=== PATIENT | female | born 1945 | race Caucasian/White ===

== ENCOUNTER 2021-08-31 13:16 | Outpatient (CLI) | payer OTHER | END 2021-08-31 13:17 | disposition critical access hospital (66) | LOC: EMS 13:16 | DX: M25.551 Pain in right hip (principal); W03.XXXA Other fall on same level due to collision with another person, initial encounter; Y93.K1 Activity, walking an animal; Y92.414 Local residential or business street as the place of occurrence of the external cause | CPT/HCPCS: A0425; A0427 ==

== ENCOUNTER 2021-08-31 13:33 | Inpatient (IN) | payer MEDICARE, OTHER ==
[2021-08-31] MEDS ORDERED: ONDANSETRON 4 MG/2 ML VIAL IVP STA (13:54)
--- NOTE | 2021-08-31 14:25 | ED Physician Documentation ---
History of Present Illness - Stated complaint Stated Complaint: GLF/HIP PX - Chief complaint Chief Complaint: Trauma Ext - History obtained from History obtained from: Patient - History of Present Illness Timing: Today Pain level max: 7 Pain level now: 6 - Additonal information Additional information: Patient is a 75-year-old female who presents to the emergency department after a ground-level fall, landing on the right hip. Worse with movement, better with rest. Given fentanyl by EMS. No head, neck, back pain. Denies any other injuries. 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 : None HEENT: None Psych: Anxiety Musculoskeletal: None Derm: None - Past Surgical History Past Surgical History: Yes General: Cholecystectomy Ortho: Knee replacement - Present Medications Home Medications: Ambulatory Orders Medication Instructions Recorded Confirmed Alprazolam [Xanax] 1 mg PO DAILY PRN 08/31/21 08/31/21 Ferrous Sulfate 220 mg PO DAILY 08/31/21 08/31/21 Montelukast [Singulair] 10 mg PO QPM 08/31/21 08/31/21 Naproxen 500 mg PO DAILY PRN 08/31/21 08/31/21 Omeprazole Magnesium 20 mg PO DAILY 08/31/21 08/31/21 - Allergies Allergies/Adverse Reactions: Allergies Allergy/AdvReac Type Severity Reaction Status Date / Time iodine Allergy Respiratory Verified 08/31/21 13:47 Penicillins Allergy Respiratory Verified 08/31/21 13:47 - Social History Does the pt smoke?: No Smoking Status: Never smoker Does the pt drink ETOH?: No Does the pt have substance abuse?: No - Immunizations Immunizations are current?: Yes PD ED PE NORMAL - Vitals Vital signs reviewed: Yes - General General: Alert and oriented X 3, No acute distress, Well developed/nourished - HEENT HEENT: PERRL, Moist mucous membranes - Neck Neck: Supple, no meningeal sign - Cardiac Cardiac: No murmur, Strong equal pulses - Respiratory Respiratory: No respiratory distress, Clear bilaterally - Abdomen Abdomen: Soft, Non tender, Non distended - Derm Derm: Warm and dry - Extremities Extremities: Other (Tender to palpation over the right hip. Very limited range of motion secondary to pain. The leg is held in slight flexion. Patient lying on her side. Neurovascular intact) - Neuro Neuro: Alert and oriented X 3 - Psych Psych: Normal mood, Normal affect Results - Vitals Vitals: Vital Signs - 24 hr 08/31/21 08/31/21 08/31/21 13:48 14:14 16:36 Temperature 36.3 C L 36.6 C Heart Rate 89 96 73 Respiratory 18 18 18 Rate Blood Pressure 140/68 H 116/91 H 127/67 O2 Saturation 98 98 99 Oxygen O2 Source Room air - EKG (time done) 1521 Rate: Rate (enter#) (72) Rhythm: NSR Cumming: Normal Intervals: Prolonged VA QRS: Normal Ischemia: Normal ST segments - Labs Labs: Laboratory Tests 08/31/21 08/31/21 08/31/21 14:36 14:36 15:35 WBC 6.5 RBC 4.29 Hgb 10.5 L Hct 33.4 L MCV 77.9 L MCH 24.5 L MCHC 31.4 L RDW 16.9 H Plt Count 347 MPV 9.9 Neut # (Auto) 4.3 Lymph # (Auto) 1.4 L Winkler # (Auto) 0.6 Eos # (Auto) 0.1 Baso # (Auto) 0.0 Absolute Nucleated RBC 0.00 Nucleated RBC % 0.0 Sodium 138 Potassium 3.5 Chloride 102 Carbon Dioxide 24 Anion Gap 12.0 BUN 14 Creatinine 0.5 Estimated GFR (MDRD) 121 Glucose 126 H Calcium 8.8 Total Bilirubin 0.7 AST 21 ALT 17 Alkaline Phosphatase 75 Total Protein 7.4 Albumin 4.1 Globulin 3.3 Albumin/Globulin Ratio 1.2 Nasal Adenovirus (PCR) NOT DETECTED Nasal B. parapertussis DNA (PCR) NOT DETECTED Nasal Coronavir 229E PCR NOT DETECTED Nasal Coronavir HKU1 PCR NOT DETECTED Nasal Coronavir NL63 PCR NOT DETECTED Nasal Coronavir OC43 PCR NOT DETECTED Nasal Enterovir/Rhinovir PCR NOT DETECTED Nasal Influenza B PCR NOT DETECTED Nasal Influenza A PCR NOT DETECTED Nasal Parainfluen 1 PCR NOT DETECTED Nasal Parainfluen 2 PCR NOT DETECTED Nasal Parainfluen 3 PCR NOT DETECTED Nasal Parainfluen 4 PCR NOT DETECTED Nasal RSV (PCR) NOT DETECTED Nasal B.pertussis DNA PCR NOT DETECTED Nasal C.pneumoniae (PCR) NOT DETECTED Jesus Human Metapneumo PCR NOT DETECTED Nasal M.pneumoniae (PCR) NOT DETECTED Nasal SARS-CoV-2 (PCR) NOT DETECTED - Rads (name of study) Right hip x-ray Radiology: Final report received, EMP read contemporaneously, See rad report (Femoral neck fracture) Chest x-ray Radiology: Final report received, EMP read contemporaneously, See rad report PD MEDICAL DECISION MAKING - ED course Complexity details: reviewed results, re-evaluated patient, considered differential, d/w patient, d/w family, d/w surgical consultant ED course: 75-year-old female with a right femoral neck fracture. Discussed the case with Dr. Banuelos, orthopedics who will take to the operating room. Pain well controlled. Discussed the case with Dr. Hannah, hospitalist who will come and do the preoperative evaluation. This document was made in part using voice recognition software. While efforts are made to proofread this document, sound alike and grammatical errors may occur. Departure - Departure Disposition: [facility] DC/Xfer Clinical Impression: Closed right hip fracture Qualifiers: Encounter type: initial encounter Qualified Code(s): S72.001A - Fracture of unspecified part of neck of right femur, initial encounter for closed fracture Condition: Stable Discharge Date/Time: 08/31/21 17:20
[2021-08-31] MEDS ORDERED: PROMETHAZINE INJ 25 MG in SODIUM CHLORIDE 0.9% 50 ML IV STA (14:39)
[2021-08-31 14:44] LABS: BASOPHILS % (AUTO) 0.6 %; EOSINOPHILS # (AUTO) 0.1 10^3/uL (0.0-0.7); EOSINOPHILS % (AUTO) 1.4 %; HCT - HEMATOCRIT 33.4 % (37.0-47.0); HGB - HEMOGLOBIN 10.5 g/dL (12.0-16.0); LYMPHOCYTES # (AUTO) 1.4 10^3/uL (1.5-3.5); MEAN CORPUSCULAR HEMOGLOBIN 24.5 pg (27.0-31.0); MEAN CORPUSCULAR HGB CONC 31.4 g/dL (32.0-36.0); MEAN CORPUSCULAR VOLUME 77.9 fL (81.0-99.0); MEAN PLATELET VOLUME 9.9 fL (7.9-10.8); MONOCYTES # (AUTO) 0.6 10^3/uL (0.0-1.0); MONOCYTES % (AUTO) 8.7 %; NEUTROPHILS # (AUTO) 4.3 10^3/uL (1.5-6.6); NEUTROPHILS % (AUTO) 66.8 %; PLT - PLATELET COUNT 347 10^3/uL (130-450); RED BLOOD COUNT 4.29 10^6/uL (4.20-5.40); RED CELL DISTRIBUTION WIDTH 16.9 % (12.0-15.0); WHITE BLOOD COUNT 6.5 x10^3/uL (4.8-10.8)
[2021-08-31 14:56] LABS: ALBUMIN 4.1 g/dL (3.2-5.5); ALBUMIN/GLOBULIN RATIO 1.2 (1.0-2.2); BILIRUBIN,TOTAL 0.7 mg/dL (0.2-1.0); CALCIUM 8.8 mg/dL (8.5-10.3); CREATININE 0.5 mg/dL (0.4-1.0); POTASSIUM 3.5 mmol/L (3.5-5.0); TOTAL PROTEIN 7.4 g/dL (6.7-8.2)
--- NOTE | 2021-08-31 15:11 | XRAY Report ---
PROCEDURE: Chest 1 View X-Ray INDICATIONS: pre-op TECHNIQUE: One view of the chest was acquired. COMPARISON: None. FINDINGS: Surgical changes and devices: None. Lungs and pleura: The patient was imaged in the left lateral decubitus position. Visualized portions of the right lung appear clear. Evaluation of the left lung is limited but grossly without focal air space disease. No definite pneumothorax or pleural effusion. Mediastinum: Mediastinal contours appear normal. Heart size is normal. Bones and chest wall: No suspicious bony lesions. Overlying soft tissues appear unremarkable. IMPRESSION: Limited evaluation of the chest given patient positioning. Within these limitations, no acute cardiop ulmonary abnormalities noted. Consider repeat imaging with dedicated upright PA and lateral views of the chest when patient is able. Reviewed by: Jamarcus Shah MD on 08/31/2021 3:10 PM PST Approved by: Jamarcus Shah MD on 08/31/2021 3:10 PM [facility] Station ID: [id number]
--- NOTE | 2021-08-31 15:14 | XRAY Report ---
PROCEDURE: Hip w/Pelvis 2-3V RT INDICATIONS: fall, hip pain TECHNIQUE: AP pelvis with lateral view(s) of the hip(s). COMPARISON: None. FINDINGS: Bones: Mildly limited evaluation given patient positioning within the left lateral decubitus position . Diffuse osteopenia. Degenerative changes of the bilateral hip joints. There is a mildly displaced s ubcapital right femoral neck fracture. Possible extension to the greater trochanter. Remainder the vi sualized osseous structures and pelvic ring appears grossly intact. No suspicious bony lesions. Soft tissues: The visualized bowel gas pattern is normal. No suspicious soft tissue calcifications. IMPRESSION: Mildly displaced, subcapital right femoral neck fracture with possible extension fractur e or into the greater trochanter. Reviewed by: Jamarcus Shah MD on 08/31/2021 3:13 PM PST Approved by: Jamarcus Shah MD on 08/31/2021 3:13 PM PST Station ID: [id number]
[2021-08-31] MEDS ORDERED: PROCHLORPERAZINE 10 MG/2 ML VIAL IVP PRN (16:17)
[2021-08-31] MEDS ORDERED: ONDANSETRON ODT 4 MG TABLET TL PRN (16:17)
[2021-08-31] MEDS ORDERED: MORPHINE 2 MG/ML CARPUJECT IVP PRN ×2 (16:17→16:42)
[2021-08-31 16:37] LABS: B. PARAPERTUSSIS- RESP PCR PAN NOT DETECTED; B. PERTUSSIS- RESP PCR PANEL NOT DETECTED; C. PNEUMONIAE- RESP PCR PANEL NOT DETECTED; CORONAVIRUS 229E-RESP PCR NOT DETECTED; CORONAVIRUS HKU1-RESP PCR NOT DETECTED; CORONAVIRUS NL63-RESP PCR NOT DETECTED; CORONAVIRUS OC43-RESP PCR NOT DETECTED; HUMAN METAPNEUMOVIRUS NOT DETECTED; INFLUENZA A- RESP PCR PANEL NOT DETECTED; INFLUENZA B - RESP PCR PANEL NOT DETECTED; M. PNEUMONIAE- RESP PCR PANEL NOT DETECTED; PARAINFLUENZA VIRUS 1 NOT DETECTED; PARAINFLUENZA VIRUS 2 NOT DETECTED; PARAINFLUENZA VIRUS 3 NOT DETECTED; PARAINFLUENZA VIRUS 4 NOT DETECTED; RHINOVIRUS/ENTEROVIRUS NOT DETECTED; RSV- RESP PCR PANEL NOT DETECTED; SARS-CoV-2 -RESP PCR PANEL NOT DETECTED
[2021-08-31] MEDS ORDERED: fentaNYL 100 MCG/2 ML VIAL IVP PRN (16:42)
[2021-08-31] MEDS ORDERED: METOCLOPRAMIDE 10 MG/2 ML VIAL IVP PRN (16:42)
[2021-08-31] MEDS ORDERED: HYDROmorphone 0.5 MG/0.5 ML SYRINGE IVP PRN (16:42)
[2021-08-31] MEDS ORDERED: ONDANSETRON 4 MG/2 ML VIAL IVP PRN (16:42)
[2021-08-31] MEDS ORDERED: NALOXONE 0.4 MG/ML VIAL IVP PRN (16:42)
[2021-08-31] MEDS ORDERED: ATROPINE ABBOJECT 1 MG/10 ML SYRINGE IVP PRN (16:42)
[2021-08-31] MEDS ORDERED: ePHEDrine 50 MG/ML VIAL IVP PRN (16:42)
--- NOTE | 2021-08-31 16:42 | ANESTHESIA ---
Pre-Anesthesia VS, & Labs - Diagnosis FX R hip - Procedure R hip hemiarthoplasty Vital Signs: Temp Pulse Resp BP Pulse Ox 36.6 C 73 18 127/67 99 08/31/21 16:36 08/31/21 16:36 08/31/21 16:36 08/31/21 16:36 08/31/21 16:36 Height: 5 ft 1 in Weight (kg): 76 kg Body Mass Index: 31.6 BMI Classification: Obese - NPO >8 hours - Is Patient ?: No - Lab Results Current Lab Results: Laboratory Tests 08/31/21 14:36: Sodium 138, Potassium 3.5, Chloride 102, Carbon Dioxide 24, Anion Gap 12.0, BUN 14, Creatinine 0.5, Estimated GFR (MDRD) 121, Glucose 126 H, Calcium 8.8, Total Bilirubin 0.7, AST 21, ALT 17, Alkaline Phosphatase 75, Total Protein 7.4, Albumin 4.1, Globulin 3.3, Albumin/Globulin Ratio 1.2 08/31/21 14:36: WBC 6.5, RBC 4.29, Hgb 10.5 L, Hct 33.4 L, MCV 77.9 L, MCH 24.5 L, MCHC 31.4 L, RDW 16.9 H, Plt Count 347, MPV 9.9, Neut # (Auto) 4.3, Lymph # (Auto) 1.4 L, Nye # (Auto) 0.6, Eos # (Auto) 0.1, Baso # (Auto) 0.0, Absolute Nucleated RBC 0.00, Nucleated RBC % 0.0 Lab results reviewed: Yes Fish Bones: 08/31/21 14:36 08/31/21 14:36 Home Medications and Allergies Home Medications: Ambulatory Orders Alprazolam [Xanax] 1 mg PO DAILY PRN 08/31/21 Ferrous Sulfate 220 mg PO DAILY 08/31/21 Montelukast [Singulair] 10 mg PO QPM 08/31/21 Naproxen 500 mg PO DAILY PRN 08/31/21 Omeprazole Magnesium 20 mg PO DAILY 08/31/21 Active Medications Enoxaparin Sodium (Enoxaparin 40 Mg/0.4 Ml Syringe) 40 mg SUBQ DAILY JOSE MIGUEL Sodium Chloride (Normal Saline 0.9%) 1,000 mls @ 100 mls/hr IV .Q10H JOSE MIGUEL Morphine Sulfate (Morphine 2 Mg/Ml Carpuject) 2 mg IVP Q2HR PRN PRN Reason: Pain 8 to 10 Ondansetron HCl (Ondansetron Odt 4 Mg Tablet) 4 mg TL Q6HR PRN PRN Reason: Nausea / Vomiting Ondansetron HCl (Ondansetron 4 Mg/2 Ml Vial) 4 mg IVP Q6HR PRN PRN Reason: Nausea / Vomiting Prochlorperazine Edisylate (Prochlorperazine 10 Mg/2 Ml Vial) 10 mg IVP Q6HR PRN PRN Reason: Nausea / Vomiting Sodium Chloride (Sodium Chloride Flush 0.9% 10 Ml Syringe) 10 ml IVP PRN PRN PRN Reason: NEEDED PER PROVIDER ORDERS Sodium Chloride (Sodium Chloride Flush 0.9% 10 Ml Syringe) 10 ml IVP 0100,0900,1700 JOSE MIGUEL Alprazolam [Xanax] 1 mg PO DAILY PRN 08/31/21 Ferrous Sulfate 220 mg PO DAILY 08/31/21 Montelukast [Singulair] 10 mg PO QPM 08/31/21 Naproxen 500 mg PO DAILY PRN 08/31/21 Omeprazole Magnesium 20 mg PO DAILY 08/31/21 Allergies/Adverse Reactions: Allergies Allergy/AdvReac Type Severity Reaction Status Date / Time iodine Allergy Respiratory Verified 08/31/21 13:47 Penicillins Allergy Respiratory Verified 08/31/21 13:47 Anes History & Medical History - Anesthetic History Anesthesia Complications: reports: No previous complications Family history of Anesthesia Complications: Denies Family history of Malignant Hyperthermia: Denies - Medical History Cardiovascular: reports: None Pulmonary: reports: Asthma Gastrointestinal: reports: GERD Urinary: reports: None Neuro: reports: Migraines Musculoskeletal: reports: None Endocrine/Autoimmune: reports: None Blood Disorders: reports: Anemia Skin: reports: None Smoking Status: Never smoker History of Cancer?: No - Surgical History General: reports: Cholecystectomy Urologic: reports: Bladder surgery Orthopedic: reports: Knee replacement Exam General: Alert, Oriented x3, Cooperative Dental: WNL Mouth Openin Fingerbreadth Neck Mobility: Normal Mallampati classification: III Thyromental Distance: less than 4 cm Respiratory: Lungs clear, Normal breath sounds, Decreased breath sounds Cardiovascular: Regular rate Neurological: Normal speech Mental/Cognitive Status: Alert/Oriented X3, Normal for patient Cognitive Status: Within normal limits Plan Anesthesia Type: General (backup), Spinal, Fascia Iliaca Block Regional Block: Per Surgeon's request for Post Op pain control Consent for Procedure(s) Verified and Reviewed: Yes Code Status: Attempt Resuscitation ASA classification: 3-Severe systemic disease Is this case an emergency?: Yes
[2021-08-31] MEDS ORDERED: LACTATED RINGERS 1,000 ML IV SCH (17:00)
--- NOTE | 2021-08-31 17:09 | CONSULTATION NOTE ---
Referring Provider Name of Referring Provider:: Dr. Greene, Dr. Hannah Consult Date: 08/31/21 History of Present Illness - Admitted From Admitted From:: Emergency room department - History Obtained From Records Reviewed: Yes History obtained from: History obtained from daughter and my limited Pashto Exam Limitations: Patient speaks Pashto, no Lithuanian - History of Present Illness HPI Comment/Other: This is a relatively healthy 75-year-old woman who is originally from [place]. She is a , lives with her daughter who is a rehabilitation manager here at [facility]. She sustained a ground level fall associated with walking her dog with her granddaughter today, landed on her right hip. She denies chest pain, shortness of breath, syncope, dizziness or loss of consciousness associated with the fall. She had difficulty bearing any weight on the right leg after the fall. She denies previous problems with her right hip. She did have a left total knee arthroplasty approximately 6 number of months ago. She is walking and trying to be more active. She is a non-smoker, does not use alcohol, denies diabetes and seems to be in good general health.She does have some history of asthma. History - Past Medical History Cardiovascular: reports: None Respiratory: reports: Asthma Neuro: reports: Migraines Endocrine/Autoimmune: reports: None GI: reports: GERD RIBBON HAND: reports: None : reports: None HEENT: reports: None Psych: reports: Anxiety Musculoskeletal: reports: None Derm: reports: None MRSA Hx?: No - Past Surgical History General: reports: Cholecystectomy Ortho: reports: Knee replacement Meds/Allgy - Home Medications Home Medications: Ambulatory Orders Medication Instructions Recorded Confirmed Alprazolam [Xanax] 1 mg PO DAILY PRN 08/31/21 08/31/21 Ferrous Sulfate 220 mg PO DAILY 08/31/21 08/31/21 Montelukast [Singulair] 10 mg PO QPM 08/31/21 08/31/21 Naproxen 500 mg PO DAILY PRN 08/31/21 08/31/21 Omeprazole Magnesium 20 mg PO DAILY 08/31/21 08/31/21 - Allergies Allergies/Adverse Reactions: Allergies Allergy/AdvReac Type Severity Reaction Status Date / Time iodine Allergy Respiratory Verified 08/31/21 13:47 Penicillins Allergy Respiratory Verified 08/31/21 13:47 Exam - Vital Signs Vital Signs: Vital Signs x48h Temp Pulse Resp BP Pulse Ox 08/31/21 16:36 36.6 C 73 18 127/67 99 08/31/21 14:14 96 18 116/91 H 98 08/31/21 13:48 36.3 C L 89 18 140/68 H 98 - Physical Exam General Appearance: positive: Mild distress Cardiovascular: positive: Regular rate & rhythm Peripheral Pulses: positive: 1+ Abdomen: positive: Non-tender Skin: positive: Color nml, No rash Extremities: negative: Other (Painful limited movement right hip, shortening and external rotation deformity right leg. Neurovascular intact.) Neurologic/Psychiatric: positive: Oriented x3, Motor nml, Sensation nml Conclusion and Plan - Lab Results Laboratory Results 08/31/21 15:35: Nasal Adenovirus (PCR) NOT DETECTED, Nasal B. parapertussis DNA (PCR) NOT DETECTED, Nasal Coronavir 229E PCR NOT DETECTED, Nasal Coronavir HKU1 PCR NOT DETECTED, Nasal Coronavir NL63 PCR NOT DETECTED, Nasal Coronavir OC43 PCR NOT DETECTED, Nasal Enterovir/Rhinovir PCR NOT DETECTED, Nasal Influenza B PCR NOT DETECTED, Nasal Influenza A PCR NOT DETECTED, Nasal Parainfluen 1 PCR NOT DETECTED, Nasal Parainfluen 2 PCR NOT DETECTED, Nasal Parainfluen 3 PCR NOT DETECTED, Nasal Parainfluen 4 PCR NOT DETECTED, Nasal RSV (PCR) NOT DETECTED, Nasal B.pertussis DNA PCR NOT DETECTED, Nasal C.pneumoniae (PCR) NOT DETECTED, Jesus Human Metapneumo PCR NOT DETECTED, Nasal M.pneumoniae (PCR) NOT DETECTED, Nasal SARS-CoV-2 (PCR) NOT DETECTED 08/31/21 14:36: Sodium 138, Potassium 3.5, Chloride 102, Carbon Dioxide 24, Anion Gap 12.0, BUN 14, Creatinine 0.5, Estimated GFR (MDRD) 121, Glucose 126 H, Calcium 8.8, Total Bilirubin 0.7, AST 21, ALT 17, Alkaline Phosphatase 75, Total Protein 7.4, Albumin 4.1, Globulin 3.3, Albumin/Globulin Ratio 1.2 08/31/21 14:36: WBC 6.5, RBC 4.29, Hgb 10.5 L, Hct 33.4 L, MCV 77.9 L, MCH 24.5 L, MCHC 31.4 L, RDW 16.9 H, Plt Count 347, MPV 9.9, Neut # (Auto) 4.3, Lymph # (Auto) 1.4 L, Loup # (Auto) 0.6, Eos # (Auto) 0.1, Baso # (Auto) 0.0, Absolute Nucleated RBC 0.00, Nucleated RBC % 0.0 - Diagnostic Imaging Results Diagnostic Imaging Results: negative: Read independently (Displaced femoral neck fracture right hip, osteopenia) - Consultation Note Consultation Note: No matter how this fracture is treated there is potential morbidity and mortality with the risk are generally much less with surgical treatment. She is in relatively good health. He she and her daughter are agreement with a hemiarthroplasty of the right hip which will be performed this evening, especially since the bed situation is so tight here in the hospital. - Plan Plan: Right hip hemiarthroplasty. The risk, goals and likelihood achieving goals, alternatives to surgery and their consequences, disability and mortality were discussed. Both general and procedure specific risks were discussed. General risks include adverse reaction to medication or anesthesia, myocardial infarction, stroke, pulmonary embolus and perioperative infection. Specific risks include perioperative fracture, dislocation, cement embolization, injury to adjacent structures such as nerve or artery. Patient is agreement to surgery has signed informed consent and was seen by Dr. Hannah who feels that there is no contraindications to surgery
--- NOTE | 2021-08-31 17:19 | HISTORY & PHYSICAL EXAMINATION ---
Chief Complaint - Chief Complaint Chief Complaint: fall w hip pain History of Present Illness - Admitted From Admitted From:: home via EMS - History Obtained From Records Reviewed: [facility] History obtained from: patient Exam Limitations: none - History of Present Illness HPI Comment/Other: She is a 75-year-old [place] female who [place] her [place] [facility] and [facility]. Her past medical history consist of a little bit of blood pressure but not much else. She use to take a "little pill" for it but hasn't in years since she has been fine. She has had elective knee replacement with general anesthesia in the past. She is here visiting her daughter and she fell today on some ice and landed on her hip. She has had instant pain since that time. She cries out intermittently during the exam. She denies any history of valvular heart disease, atrial fibrillation, chronic kidney disease. She did have pneumonia about 2 years ago and it was identified as a fungus. As a result she has some asthma. She walks about a mile and a half a day but still feels like she could walk further if it was not for that darn pneumonia. She denies daily cough. No phlegm production. She has never had a heart attack nor has she had a stroke. Up until she had her fall today, there has been no change in cardiovascular status. She is completely independent with activities of daily living. In the emergency room temperature was 36.3. Heart rate 89. Blood pressure 140/68. Respirations 18. 98% on room air. She is an exceedingly pleasant [place] female who looks her stated age. Short statured, moderately overweight. Other than the foreshortened leg and severe pain with rotation of the hip, she has a negative physical exam. Her CMP is normal except for mildly elevated random glucose of 126. CBC is starting out at a hemoglobin of 10.5 and she does not know she has anemia or not. She does not think she does. Chest x-ray is limited, but there is no acute cardiopulmonary abnormality. Hip and pelvis x- ray has a mildly displaced, subcapital right femoral neck fracture with possible extension fracture into the greater trochanter. Orthopedic surgery has assess to see the patient and place her on her service and they will consult. History - Past Medical History Cardiovascular: reports: Hypertension Respiratory: reports: Asthma, Pneumonia (Fungal, 2 years ago) Neuro: reports: Migraines Endocrine/Autoimmune: reports: None GI: reports: GERD MANAGER CARE MANAGEMENT: reports: Other (G4, P4) : reports: None HEENT: reports: Chronic vision loss (Presbyopia) Psych: reports: Anxiety Musculoskeletal: reports: Osteoarthritis (Of the knees) Derm: reports: None MRSA Hx?: No - Past Surgical History General: reports: Cholecystectomy Ortho: reports: Knee replacement /MANAGER CARE MANAGEMENT: reports: Other (bladder surgery) - Family & Social History Family History Comment/Other: Mom in her 60s of complications of gallbladder surgery with some pancreatitis. Dad at 93 of old age. 6 siblings that are all alive she states that they are all healthy without hypertension, stroke, heart attack or cancer. They all live in [place]. 4 children. One son in an accident at the age of 37 this last year. Living arrangement: At home Living Situation: With family Social History Notes: She is from [facility]. She divides her time between there and in [place]. Her daughter, born in [facility], a [place] man who was stationed in [facility]. That was close to 20 years ago. With the of her son this last year, the patient has been spending more time with her daughter here in the [facility]. She is also . She never smoked. She states that she drinks a beer every "once in a while". She has no history of alcohol abuse or recreational substance abuse. - Substance History Use: Uses substance without health or social issues: Alcohol Abuse: Recurrent use of substance despite neg consequences: NONE Dependence: Experiences withdrawal or developed tolerances: NONE - POLST Patient has POLST: No POLST Status: Full Code Meds/Allgy - Home Medications Home Medications: Ambulatory Orders Medication Instructions Recorded Confirmed Alprazolam [Xanax] 1 mg PO DAILY PRN 08/31/21 08/31/21 Ferrous Sulfate 220 mg PO DAILY 08/31/21 08/31/21 Montelukast [Singulair] 10 mg PO QPM 08/31/21 08/31/21 Naproxen 500 mg PO DAILY PRN 08/31/21 08/31/21 Omeprazole Magnesium 20 mg PO DAILY 08/31/21 08/31/21 - Allergies Allergies/Adverse Reactions: Allergies Allergy/AdvReac Type Severity Reaction Status Date / Time iodine Allergy Respiratory Verified 08/31/21 13:47 Penicillins Allergy Respiratory Verified 08/31/21 13:47 Review of Systems - Constitutional Constitutional: denies: Fatigue, Fever, Chills, Malaise, Weakness, Poor appetite - Eyes Eyes: reports: Vision loss. denies: Pain, Irritation, Amaurosis, Blurred vision - Ears, Nose & Throat Ears, Nose & Throat: reports: Hearing loss, Nasal congestion, Postnasal drainage. denies: Ear pain, Hearing aids, Tinnitus, Vertigo, Nasal pain, Nasal discharge, Sore throat, Hoarseness - Cardiovascular Cariovascular: reports: Exertional dyspnea. denies: Irregular heart rate, Palpitations, Chest pain, Edema, Lightheadedness, Syncope, Decr. exercise tolerance - Respiratory Respiratory: reports: Cough (rare and occasionally). denies: Sputum production, Wheezing, Snoring, SOB at rest, SOB with exertion - Gastrointestinal Gastrointestinal: reports: Nausea (w food sometimes since her 20s.), Reflux/heartburn, Bloating. denies: Abdominal pain, Abdominal distention, Co nstipation, Diarrhea, Change in bowel habits - Genitourinary Genitourinary: denies: Dysuria, Frequency, Urgency, Hematuria, Incontinence, Flank pain - Musculoskeletal Musculoskeletal: reports: Stiffness. denies: Muscle pain, Back pain, Muscle aches, Gout, Joint pain - Integumentary Integumentary: denies: Rash, Pruritis, Lesions, Dryness - Neurological Neurological: reports: Headache. denies: General weakness, Focal weakness, Dizziness, Memory problems, Pre-existing deficit - Psychiatric Psychiatric: reports: Depression (getting over the loss of her son), Anxiety. denies: Suicidal - Endocrine Endocrine: denies: Polyuria, Polydypsia - Hematologic/Lymphatic Hematologic/Lymphatic: denies: Anemia, Bruising, Petechiae Prior Level of Functionality: Independent with activities of daily living. Does not use any durable medical equipment. Exam - Vital Signs Reviewed Vital Signs: Yes Vital Signs: Vital Signs x48h Temp Pulse Resp BP Pulse Ox 08/31/21 16:36 36.6 C 73 18 127/67 99 08/31/21 14:14 96 18 116/91 H 98 08/31/21 13:48 36.3 C L 89 18 140/68 H 98 - Physical Exam General Appearance: positive: Alert, Moderate distress (Periodically cramping pain if her hip moves at all), Other (Short statured moderately overweight elderly [place]ic female) Eyes Bilateral: positive: PERRL, EOMI ENT: positive: Pharynx nml Neck: positive: No JVD. negative: Stiff neck Respiratory: positive: No respiratory distress. negative: Wheezes, Rales, Rhonchi Cardiovascular: positive: Regular rate & rhythm. negative: Gallop/S4, Friction rub Peripheral Pulses: positive: 1+ Abdomen: positive: Non-tender, No organomegaly, Nml bowel sounds, No distention Skin: positive: Warm, Dry Extremities: positive: No pedal edema. negative: Full ROM (Her right hip cannot be moved at all. Externally rotated and foreshortened.) Neurologic/Psychiatric: positive: Oriented x3, CN's nml (2-12) (But she tells me she is a little bit deaf. She cannot tell of its a problem with people wearing masks or if it's her ears), Motor nml Conclusion/Plan - Problem List (1) Closed right hip fracture Conclusion/Plan: Simple mechanical fall on ice today. Dr. Ramirez has asked us to admit the patient to our service and he will consult. She will be taken to the operating room today. Plan: Inpatient status Surgical hip pinning DVT prophylaxis start tomorrow Review chart daily for acute blood loss anemia due to surgery Have discharge planning/social work choice the patient for which facility she would like to go to for rehab Qualifiers: Encounter type: initial encounter Qualified Code(s): S72.001A - Fracture of unspecified part of neck of right femur, initial encounter for closed fracture (2) Preop cardiovascular exam Conclusion/Plan: This alethea female has a below average risk of serious complication, any complication, pneumonia, etc. She should do well with a projected length of stay of 3.5 days according to [employer] surgical risk calculator. Revised cardiac index does not have her with a high risk surgery. She does not have a history of ischemic heart disease, congestive heart failure, cerebrovascular disease, preoperative insulin, or elevated preoperative creatinine. She is 0 points, class I risk with an overall 3.9% 30-day risk of , MO, or cardiac arrest. (3) Atopic asthma without complication Conclusion/Plan: In the outpatient setting she takes Singulair. We will resume that as well as a as needed inhaler. Qualifiers: Asthma severity: mild - Lab Results Lab results reviewed: Yes Fish Bones: 08/31/21 14:36 08/31/21 14:36 - Diagnostic Imaging Results Diagnostic Imaging Results: positive: Final report reviewed Diagnostic Imaging Results Comments: Mildly displaced, subcapital right femoral neck fracture with possible extension of the fracture into the greater trochanter. - EKG Results EKG Interpreted Independently: No EKG Comparison: No prior EKG Core Measures - Anticipated LOS I expect patient to be DC'd or transferred within 96 hours.: Yes - DVT/VTE - Prophylaxis VTE/DVT Device ordered at admit?: Yes
[2021-08-31] MEDS ORDERED: LIDOCAINE 2%-EPI 1:100000 20 ML MDV SUBQ ONE (18:28)
[2021-08-31] MEDS ORDERED: VANCOMYCIN 1 GM VIAL MC ONE (18:28)
--- NOTE | 2021-08-31 19:12 | OPERATIVE REPORT ---
Operative Report - General Admit Date: 08/31/21 Procedure Date: 08/31/21 Planned Procedure: Right hip hemiarthroplasty Pre-Op Diagnosis: Displaced femoral neck fracture right hip Procedure Performed: Cemented right hip hemiarthroplasty using [employer] cemented Synergy #11 femoral component, standard offset, 45 mm unipolar +4 head Post Op Diagnosis: Same as preoperative diagnosis - Procedure Note Primary Surgeon: Homer Banuelos MD Secondary Surgeon: Jay EGAN Anesthesia Provider: Miguel Santa CRNA Anesthesia Technique: Regional block, Spinal Estimated Blood Loss (mL): 200 Indications: This is a 75-year-old woman who was walking with her dog and granddaughter, tripped and fell onto her right hip. She had immediate pain and inability to bear weight on right leg. The injury happened today. She was brought to the emergency room for evaluation and was found to have a femoral neck fracture of the right hip. She had shortening and external rotation deformity to the right leg, pain with passive motion to right hip. Her x-ray showed a displaced femoral neck fracture right hip. She was evaluated by Dr. Hannah preoperatively. An informed consent was obtained with the help of her daughter who speaks both Algerian and Tajik. The patient only speaks Algerian. Findings: There was a displaced femoral neck fracture with some comminution. The acetabulum was intact. Complications: None - Other Other Information/Narrative: The patient was brought to the operating room, given a general anesthetic. She was placed on the operating table initially supine, then turned to a lateral decubitus position with the right hip facing superiorly. She was secured in the lateral decubitus position using the pegboard and PEG holders to pelvis and torso. The right hip and lower extremity were prepped and draped in a sterile manner in the usual fashion. A timeout procedure was performed by the entire operating room team and all were in agreement. A longitudinal incision was made over the lateral aspect of the left hip, centered about the greater trochanter. The skin, subcutaneous tissue and fascia faye were split. A self-retaining retractor was inserted. The myotendinous junction of the anterior one third of the gluteus medius was released. The anterior hip capsule was exposed split longitudinally and then divided transversely in a T-shaped fashion. Part of the anterior hip capsule was excised. The femoral head was removed using a corkscrew and bone hook, measured 45 mm in diameter with calipers. The acetabulum was cleared of some small capsular fracture fragments. The right leg was placed in an anterior pocket. The femoral canal was opened with a box osteotome, starting reamer and then broaching up to a 11 mm broach. The broaching was done in 1 mm increments. The broach was inserted with slight anteversion. Because of her thin cortex, a cemented technique was elected. A canal plug was inserted distally, approximately 18 cm distal to the osteotomy. The canal was cleaned with a brush and pulsatile lavage, dried with a suction pad and lap pad. A 11 Synergy component was then inserted after using a cement gun to insert the cement, pressurizing the cement. The proximal portion of the stem was pushed laterally to provide some valgus, set flush with femoral neck cortex. Trial reduction was performed with the 45 mm +4 unipolar head and was found to be stable and had good leg length tension. A permanent 45 mm unipolar head was then impacted on the femoral trunnion, reduced, taken through range of motion is found to have good motion and good stability as well as leg length tension. The wound was irrigated with dilute Betadine followed by saline irrigation. Vancomycin powder 1 g was placed within the hip joint. The anterior capsule and gluteus medius were both repaired with #1 strata fix suture, fascia faye closed with #1 strata fix suture, subcutaneous tissue closed with 2 O strata fix suture, subcuticular closure with 3 O strata fix suture. Finally, Dermabond was applied to the skin, silver impregnated dressing after the Dermabond had hardened. She received 2 g of Ancef and 1 g of tranexamic acid, tolerated procedure well. Physician regulatory assistant was utilized, medically necessary, to provide the necessary exposure, protection of vital structures, facilitate with dislocation and reduction of the hip, wound closure and dressing.
[2021-08-31] MEDS ORDERED: LACTATED RINGERS 750 ML IV ONE (19:33)
--- NOTE | 2021-08-31 20:03 | ANESTHESIA POST OP EVALUATION ---
Anesthesia Post Eval - Post Anesthesia Eval Vitals: Last Vital Signs Temp 36.4 C L 08/31/21 19:55 Pulse 86 08/31/21 19:55 Resp 18 08/31/21 19:55 BP 104/70 08/31/21 19:55 Pulse Ox 98 08/31/21 19:55 CV Function Including HR & BP: Stable Pain Control: Satisfactory Nausea & Vomiting: Negative Mental Status: Baseline Respiratory Status: Airway Patent Hydration Status: Satisfactory Anesthesia Complications: None
[2021-08-31] MEDS: KETOROLAC 15 MG/ML VIAL IVP PRN (21:54)
[2021-08-31] MEDS: SODIUM CHLORIDE FLUSH 0.9% 10 ML SYRINGE IVP SCH (21:55)
[2021-08-31] MEDS: ONDANSETRON 4 MG/2 ML VIAL IVP PRN (22:17)
[2021-08-31] MEDS: SODIUM CHLORIDE FLUSH 0.9% 10 ML SYRINGE IVP PRN (22:18)
[2021-09-01] MEDS: HYDROmorphone 1 MG/ML CARPUJECT IVP PRN ×3 (00:34→11:17)
[2021-09-01] MEDS: ONDANSETRON 4 MG/2 ML VIAL IVP PRN ×3 (00:34→20:08)
[2021-09-01] MEDS: SODIUM CHLORIDE 0.9% 1,000 ML IV SCH ×4 (01:18→20:08)
[2021-09-01] MEDS ORDERED: ceFAZolin 2 GM in SODIUM CHLORIDE 0.9% 100ML 100 ML IV ONE (01:30)
[2021-09-01] MEDS: SODIUM CHLORIDE FLUSH 0.9% 10 ML SYRINGE IVP SCH ×3 (01:56→16:55)
[2021-09-01] MEDS: PANTOPRAZOLE 40 MG TABLET PO SCH (09:12)
[2021-09-01] MEDS: KETOROLAC 15 MG/ML VIAL IVP PRN ×3 (09:12→21:33)
[2021-09-01] MEDS: ENOXAPARIN 40 MG/0.4 ML SYRINGE SUBQ SCH (09:12)
[2021-09-01] MEDS: oxyCODONE 5 MG TABLET PO PRN ×2 (10:17→20:07)
[2021-09-01] MEDS: ACETAMINOPHEN 325 MG TABLET PO PRN ×2 (10:17→20:07)
--- NOTE | 2021-09-01 11:38 | PHARMACY PROGRESS NOTE ---
- Best Possible Medication History Admit Date and Time: 08/31/21 1700 Processed by: Nursing Medication History completed: Yes As the person ultimately responsible for medication therapy, providers are able to order a medication from an existing home medication list in [facility] via the "Reconcile Routine" prior to Confirmation of that medication by client support analyst. Such practice is discouraged except when the physician, in their clinical judgment, deems that a medical need exists for a medication without regard to previous use.
[2021-09-01 11:56] LABS: BASOPHILS % (AUTO) 0.3 %; EOSINOPHILS # (AUTO) 0.3 10^3/uL (0.0-0.7); EOSINOPHILS % (AUTO) 2.7 %; HCT - HEMATOCRIT 24.8 % (37.0-47.0); HGB - HEMOGLOBIN 8.1 g/dL (12.0-16.0); LYMPHOCYTES # (AUTO) 1.8 10^3/uL (1.5-3.5); LYMPHOCYTES % (AUTO) 19.4 %; MEAN CORPUSCULAR HEMOGLOBIN 25.6 pg (27.0-31.0); MEAN CORPUSCULAR HGB CONC 32.7 g/dL (32.0-36.0); MEAN CORPUSCULAR VOLUME 78.5 fL (81.0-99.0); MEAN PLATELET VOLUME 10.1 fL (7.9-10.8); MONOCYTES # (AUTO) 0.6 10^3/uL (0.0-1.0); MONOCYTES % (AUTO) 6.8 %; NEUTROPHILS # (AUTO) 6.5 10^3/uL (1.5-6.6); NEUTROPHILS % (AUTO) 70.5 %; PLT - PLATELET COUNT 240 10^3/uL (130-450); RED BLOOD COUNT 3.16 10^6/uL (4.20-5.40); RED CELL DISTRIBUTION WIDTH 16.7 % (12.0-15.0); WHITE BLOOD COUNT 9.2 x10^3/uL (4.8-10.8)
[2021-09-01 12:02] LABS: CALCIUM 8.1 mg/dL (8.5-10.3); CREATININE 0.7 mg/dL (0.4-1.0); POTASSIUM 3.8 mmol/L (3.5-5.0)
[2021-09-01] MEDS ORDERED: ALBUTEROL NEB 2.5 MG/3 ML INH PRN (12:45)
--- NOTE | 2021-09-01 12:45 | PROVIDER PROGRESS NOTE ---
Subjective - Prog Note Date Prog Note Date: 09/01/21 Prog Note Time: 12:47 - Subjective Subjective: She was in significantly more pain that I would expect in a postop day #1. She is crying and states that her leg is not much improved from yesterday's pain where she had a fracture. She says the pain is changed. It is still located over the femur area but now the thigh feels hot, swollen, and like it is under pressure. She cannot move her right leg. Even moving around her ankle or trying to bend her knee makes the pain in the thigh worse. Not able to tolerate food well. Nauseated. Clear liquids offered her this morning and even those are not tolerated due to nausea. Current Medications - Current Medications Current Medications: Active Medications Acetaminophen (Acetaminophen 325 Mg Tablet) 650 mg PO Q4HR PRN PRN Reason: Pain or Fever > 38C (100.4F) Last Admin: 09/01/21 10:17 Dose: 650 mg Documented by: Albuterol (Albuterol Neb 2.5 Mg/3 Ml) 2.5 mg INH RTQ4H PRN PRN Reason: Wheezing Calcium Carbonate/Glycine (Calcium Carbonate Chew 500 Mg Tablet) 500 mg PO BID JOSE MIGUEL Cholecalciferol (Cholecalciferol 25 Mcg Tablet) 50 mcg PO DAILY JOSE MIGUEL Enoxaparin Sodium (Enoxaparin 40 Mg/0.4 Ml Syringe) 40 mg SUBQ DAILY [facility] Last Admin: 09/01/21 09:12 Dose: 40 mg Documented by: Hydromorphone HCl (Hydromorphone 1 Mg/Ml Carpuject) 1 mg IVP Q2HR PRN PRN Reason: PAIN Last Admin: 09/01/21 11:17 Dose: 1 mg Documented by: Sodium Chloride (Normal Saline 0.9%) 1,000 mls @ 100 mls/hr IV .Q10H JOSE MIGUEL Last Admin: 09/01/21 11:11 Dose: 100 mls/hr Documented by: Ketorolac Tromethamine (Ketorolac 15 Mg/Ml Vial) 15 mg IVP Q6HR PRN PRN Reason: PAIN Stop: 09/05/21 20:24 Last Admin: 09/01/21 09:12 Dose: 15 mg Documented by: Montelukast Sodium (Montelukast 10 Mg Tablet) 10 mg PO QPM [facility] Non-Formulary Medication (Alprazolam [Xanax]) 1 mg PO DAILY PRN PRN Reason: Anxiety Non-Formulary Medication (Ferrous Sulfate [Ferrous Sulfate]) 220 mg PO DAILY [facility] Ondansetron HCl (Ondansetron Odt 4 Mg Tablet) 4 mg TL Q6HR PRN PRN Reason: Nausea / Vomiting Ondansetron HCl (Ondansetron 4 Mg/2 Ml Vial) 4 mg IVP Q6HR PRN PRN Reason: Nausea / Vomiting Last Admin: 09/01/21 11:17 Dose: 4 mg Documented by: Oxycodone HCl (Oxycodone 5 Mg Tablet) 5 mg PO Q4HR PRN PRN Reason: PAIN Last Admin: 09/01/21 10:17 Dose: 5 mg Documented by: Pantoprazole Sodium (Pantoprazole 40 Mg Tablet) 40 mg PO QDAC [facility] Last Admin: 09/01/21 09:12 Dose: 40 mg Documented by: Prochlorperazine Edisylate (Prochlorperazine 10 Mg/2 Ml Vial) 10 mg IVP Q6HR PRN PRN Reason: Nausea / Vomiting Sodium Chloride (Sodium Chloride Flush 0.9% 10 Ml Syringe) 10 ml IVP PRN PRN PRN Reason: NEEDED PER PROVIDER ORDERS Last Admin: 08/31/21 22:18 Dose: 10 ml Documented by: Sodium Chloride (Sodium Chloride Flush 0.9% 10 Ml Syringe) 10 ml IVP 0100,0900,1700 [facility] Last Admin: 09/01/21 08:57 Dose: Not Given Documented by: Alprazolam [Xanax] 1 mg PO DAILY PRN 08/31/21 Ferrous Sulfate 220 mg PO DAILY 08/31/21 Montelukast [Singulair] 10 mg PO QPM 08/31/21 Naproxen 500 mg PO DAILY PRN 08/31/21 Omeprazole Magnesium 20 mg PO DAILY 08/31/21 Objective - Vital Signs/Intake & Output Reviewed Vital Signs: Yes Vital Signs: Vital Signs x48h Temp Pulse Resp BP Pulse Ox 09/01/21 08:00 37.2 C 85 16 111/58 L 97 09/01/21 05:41 37 C 85 17 115/53 L 97 Intake & Output: Intake & Output 08/29/21 08/30/21 08/31/2105/22 23:59 23:59 23:59 23:59 Intake Total 51 1358.333 Output Total 150 125 Balance -99 1233.333 - Objective General Appearance: positive: Alert, Moderate distress, Other (In addition to the pain, she states it is just been really hard. She misses her , she misses her son.) Eyes Bilateral: positive: PERRL, EOMI ENT: positive: No signs of dehydration Neck: positive: No JVD. negative: Stiff neck Respiratory: positive: No respiratory distress. negative: Wheezes, Rales, Rhonchi Cardiovascular: positive: Regular rate & rhythm. negative: Gallop/S4, Friction rub Abdomen: positive: Non-tender, No organomegaly, Nml bowel sounds, No distention Skin: positive: Warm, Dry Extremities: positive: Other (Right thigh is tense with edema. Medial thigh is warm, slightly pink. Very painful to touch laterally as well as medially.) Neurologic/Psychiatric: positive: Oriented x3, CN's nml (2-12), Motor nml. negative: Mood/affect nml - Lab Results Fish Bones: 09/01/21 11:47 09/01/21 11:47 Other Labs: Lab Results x24hrs 09/01/21 09/01/21 08/31/21 Range/Units 11:47 11:47 15:35 WBC 9.2 (4.8-10.8) x10^3/uL RBC 3.16 L (4.20-5.40) 10^6/uL Hgb 8.1 L (12.0-16.0) g/dL Hct 24.8 L (37.0-47.0) % MCV 78.5 L (81.0-99.0) fL MCH 25.6 L (27.0-31.0) pg MCHC 32.7 (32.0-36.0) g/dL RDW 16.7 H (12.0-15.0) % Plt Count 240 (130-450) 10^3/uL MPV 10.1 (7.9-10.8) fL Neut # (Auto) 6.5 (1.5-6.6) 10^3/uL Lymph # (Auto) 1.8 (1.5-3.5) 10^3/uL Ada # (Auto) 0.6 (0.0-1.0) 10^3/uL Eos # (Auto) 0.3 (0.0-0.7) 10^3/uL Baso # (Auto) 0.0 (0.0-0.1) 10^3/uL Absolute Nucleated RBC 0.00 x10^3/uL Nucleated RBC % 0.0 /100WBC Sodium 137 (135-145) mmol/L Potassium 3.8 (3.5-5.0) mmol/L Chloride 105 (101-111) mmol/L Carbon Dioxide 25 (21-32) mmol/L Anion Gap 7.0 (6-13) BUN 18 (6-20) mg/dL Creatinine 0.7 (0.4-1.0) mg/dL Estimated GFR (MDRD) 82 L (>89) Glucose 120 H (70-100) mg/dL Calcium 8.1 L (8.5-10.3) mg/dL Total Bilirubin (0.2-1.0) mg/dL AST (10-42) IU/L ALT (10-60) IU/L Alkaline Phosphatase (42-121) IU/L Total Protein (6.7-8.2) g/dL Albumin (3.2-5.5) g/dL Globulin (2.1-4.2) g/dL Albumin/Globulin Ratio (1.0-2.2) Nasal Adenovirus (PCR) NOT DETECTED Nasal B. parapertussis DNA (PCR) NOT DETECTED Nasal Coronavir 229E PCR NOT DETECTED Nasal Coronavir HKU1 PCR NOT DETECTED Nasal Coronavir NL63 PCR NOT DETECTED Nasal Coronavir OC43 PCR NOT DETECTED Nasal Enterovir/Rhinovir PCR NOT DETECTED Nasal Influenza B PCR NOT DETECTED Nasal Influenza A PCR NOT DETECTED Nasal Parainfluen 1 PCR NOT DETECTED Nasal Parainfluen 2 PCR NOT DETECTED Nasal Parainfluen 3 PCR NOT DETECTED Nasal Parainfluen 4 PCR NOT DETECTED Nasal RSV (PCR) NOT DETECTED Nasal B.pertussis DNA PCR NOT DETECTED Nasal C.pneumoniae (PCR) NOT DETECTED Jesus Human Metapneumo PCR NOT DETECTED Nasal M.pneumoniae (PCR) NOT DETECTED Nasal SARS-CoV-2 (PCR) NOT DETECTED 08/31/21 08/31/21 Range/Units 14:36 14:36 WBC 6.5 (4.8-10.8) x10^3/uL RBC 4.29 (4.20-5.40) 10^6/uL Hgb 10.5 L (12.0-16.0) g/dL Hct 33.4 L (37.0-47.0) % MCV 77.9 L (81.0-99.0) fL MCH 24.5 L (27.0-31.0) pg MCHC 31.4 L (32.0-36.0) g/dL RDW 16.9 H (12.0-15.0) % Plt Count 347 (130-450) 10^3/uL MPV 9.9 (7.9-10.8) fL Neut # (Auto) 4.3 (1.5-6.6) 10^3/uL Lymph # (Auto) 1.4 L (1.5-3.5) 10^3/uL Ada # (Auto) 0.6 (0.0-1.0) 10^3/uL Eos # (Auto) 0.1 (0.0-0.7) 10^3/uL Baso # (Auto) 0.0 (0.0-0.1) 10^3/uL Absolute Nucleated RBC 0.00 x10^3/uL Nucleated RBC % 0.0 /100WBC Sodium 138 (135-145) mmol/L Potassium 3.5 (3.5-5.0) mmol/L Chloride 102 (101-111) mmol/L Carbon Dioxide 24 (21-32) mmol/L Anion Gap 12.0 (6-13) BUN 14 (6-20) mg/dL Creatinine 0.5 (0.4-1.0) mg/dL Estimated GFR (MDRD) 121 (>89) Glucose 126 H (70-100) mg/dL Calcium 8.8 (8.5-10.3) mg/dL Total Bilirubin 0.7 (0.2-1.0) mg/dL AST 21 (10-42) IU/L ALT 17 (10-60) IU/L Alkaline Phosphatase 75 (42-121) IU/L Total Protein 7.4 (6.7-8.2) g/dL Albumin 4.1 (3.2-5.5) g/dL Globulin 3.3 (2.1-4.2) g/dL Albumin/Globulin Ratio 1.2 (1.0-2.2) Nasal Adenovirus (PCR) Nasal B. parapertussis DNA (PCR) Nasal Coronavir 229E PCR Nasal Coronavir HKU1 PCR Nasal Coronavir NL63 PCR Nasal Coronavir OC43 PCR Nasal Enterovir/Rhinovir PCR Nasal Influenza B PCR Nasal Influenza A PCR Nasal Parainfluen 1 PCR Nasal Parainfluen 2 PCR Nasal Parainfluen 3 PCR Nasal Parainfluen 4 PCR Nasal RSV (PCR) Nasal B.pertussis DNA PCR Nasal C.pneumoniae (PCR) Jesus Human Metapneumo PCR Nasal M.pneumoniae (PCR) Nasal SARS-CoV-2 (PCR) ABX Reporting Has patient been on IV antibiotics over the past 48 hours?: No Assessment/Plan - Problem List (1) Closed right hip fracture Impression: Simple mechanical fall on ice . She is POD #1. Not doing well w pain and redness of medial right thigh. Differential would include postoperative inflammation that is expected, or preoperative bleeding into the leg, or possible fluid accumulation with infection. Plan: Ultrasound of leg, nonvascular. Continue Toradol for pain. Check hemogram to assess for acute blood loss anemia. Qualifiers: Encounter type: initial encounter Qualified Code(s): S72.001A - Fracture of unspecified part of neck of right femur, initial encounter for closed fracture (2) Preop cardiovascular exam Conclusion/Plan: This alethea female has a below average risk of serious complication, any complication, pneumonia, etc. She should do well with a projected length of stay of 3.5 days according to [employer] surgical risk calculator. Revised cardiac index does not have her with a high risk surgery. She does not have a history of ischemic heart disease, congestive heart failure, cerebrovascular disease, preoperative insulin, or elevated preoperative creatinine. She is 0 points, class I risk with an overall 3.9% 30-day risk of , AL, or cardiac arrest. (3) Atopic asthma without complication Conclusion/Plan: In the outpatient setting she takes Singulair. That and albuterol started today. Qualifiers: Asthma severity: mild Qualifiers: Qualified Code(s): S72.001A - Fracture of unspecified part of neck of right femur, initial encounter for closed fracture
--- NOTE | 2021-09-01 16:08 | Ultrasound Report ---
PROCEDURE: Ext Limited Non Vascular INDICATIONS: postop R thigh pain, redness, swelling TECHNIQUE: Real-time scanning was performed of the right lower extremity, with image documentation. COMPARISON: None. FINDINGS: Superior/posterior thigh: Hypoechoic area, measuring 3.3 x 1.3 x 3.4 cm, which may reflect postop ser sarai. Lateral knee/popliteal fossa: Hypoechoic area, measuring 4.4 x 0.5 x 2.7 cm, which may reflect a join t effusion or fluid collection. Superior/medial thigh: Hypoechoic area, measuring 2.2 x 1.2 x 7.1 cm. IMPRESSION: 1. Multiple hypoechoic areas are seen throughout the right lower extremity as detailed above, which a re nonspecific and may reflect postoperative seromas. A superimposed infectious process cannot be exc luded. Reviewed by: Alverto Valerio MD on 09/01/2021 4:07 PM PST Approved by: Alverto Valerio MD on 09/01/2021 4:07 PM PST Station ID: [id number]
--- NOTE | 2021-09-01 16:10 | XRAY Report ---
PROCEDURE: Hip w/Pelvis 1V RT INDICATIONS: Post op TECHNIQUE: AP pelvis with lateral view(s) of the hip(s). COMPARISON: None. 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 No pericardial hardw are lucency or fracture. No fractures or dislocations. Pelvic ring appears intact. No suspicious johanna ny lesions. Soft tissues: The visualized bowel gas pattern is normal. No suspicious soft tissue calcifications. IMPRESSION: Postoperative changes with no complication. Reviewed by: Harrison Washington on 09/01/2021 4:09 PM PST Approved by: Harrison Washington on 09/01/2021 4:09 PM PST Station ID: [id number]
[2021-09-01] MEDS: CHOLECALCIFEROL 25 MCG TABLET PO SCH (16:50)
--- NOTE | 2021-09-01 18:15 | PROVIDER PROGRESS NOTE ---
Subjective - General Admit Date: 08/31/21 Procedure Date: 08/31/21 Post Op Days: 1 - Review of Systems Wound/Incisions: positive: Dressing dry and intact General: negative: Fever, Chills Pulmonary: negative: Shortness of breath Cardiovascular: negative: Chest pain Gastrointestinal: negative: Nausea, Vomiting Musculoskeletal: positive: Joint pain (Patient is a 75-year-old female [place]ese- speaking who is postop day 1 right hip hemiarthroplasty for Femoral neck fracture after a fall perform a Dr Homer Banuelos at [facility] on 08/31/2021. Patient's pain is well controlled. She does not show any signs Or symptoms of infection.) Objective - Patient Data Vital Signs: Vital Signs x48h Temp Pulse Pulse Pulse Resp BP BP 09/01/21 16:08 36.7 C 81 16 102/47 L 09/01/21 14:45 85 79 128/63 BP Pulse Ox 09/01/21 16:08 94 09/01/21 14:45 110/63 Weight: Weight 08/30/21 08/31/21 09/01/21 23:59 23:59 23:59 Weight (kg) 77.5 kg Intake & Output: Intake and Output Totals x24h 08/30/21 08/31/21 09/01/21 23:59 23:59 23:59 Intake Total 51 1903.333 Output Total 150 275 Balance -99 1628.333 - Lab Results Lab Results: 09/01/21 11:47 09/01/21 11:47 Other Lab Results: Lab Results x24hrs 09/01/21 09/01/21 Range/Units 11:47 11:47 WBC 9.2 (4.8-10.8) x10^3/uL RBC 3.16 L (4.20-5.40) 10^6/uL Hgb 8.1 L (12.0-16.0) g/dL Hct 24.8 L (37.0-47.0) % MCV 78.5 L (81.0-99.0) fL MCH 25.6 L (27.0-31.0) pg MCHC 32.7 (32.0-36.0) g/dL RDW 16.7 H (12.0-15.0) % Plt Count 240 (130-450) 10^3/uL MPV 10.1 (7.9-10.8) fL Neut # (Auto) 6.5 (1.5-6.6) 10^3/uL Lymph # (Auto) 1.8 (1.5-3.5) 10^3/uL [place] # (Auto) 0.6 (0.0-1.0) 10^3/uL Eos # (Auto) 0.3 (0.0-0.7) 10^3/uL Baso # (Auto) 0.0 (0.0-0.1) 10^3/uL Absolute Nucleated RBC 0.00 x10^3/uL Nucleated RBC % 0.0 /100WBC Sodium 137 (135-145) mmol/L Potassium 3.8 (3.5-5.0) mmol/L Chloride 105 (101-111) mmol/L Carbon Dioxide 25 (21-32) mmol/L Anion Gap 7.0 (6-13) BUN 18 (6-20) mg/dL Creatinine 0.7 (0.4-1.0) mg/dL Estimated GFR (MDRD) 82 L (>89) Glucose 120 H (70-100) mg/dL Calcium 8.1 L (8.5-10.3) mg/dL - Imaging Results Radiology Imaging: positive: EMP read indepedently (Postop x-rays of the pelvis were independently ordered and visualized that show postsurgical changes of a hip hemiarthroplasty with good anatomical alignment no apparent hardware loosening.) - Current Medications Current Medications: Current Medications Generic Name Dose Route Start Last Admin Trade Name Freq PRN Reason Stop Dose Admin Acetaminophen 650 mg 08/31/21 20:26 09/01/21 10:17 Acetaminophen 325 Mg Tablet PO 650 mg Q4HR PRN Administration Pain or Fever > 38C (100.4F) Cholecalciferol 50 mcg 09/01/21 16:00 09/01/21 16:50 Cholecalciferol 25 Mcg Tablet PO 50 mcg DAILY JOSE MIGUEL Administration Enoxaparin Sodium 40 mg 09/01/21 09:00 09/01/21 09:12 Enoxaparin 40 Mg/0.4 Ml Syringe SUBQ 40 mg DAILY JOSE MIGUEL Administration Hydromorphone HCl 1 mg 09/01/21 00:24 09/01/21 11:17 Hydromorphone 1 Mg/Ml Carpuject IVP 1 mg Q2HR PRN Administration PAIN Sodium Chloride 1,000 mls @ 100 mls/hr 08/31/21 17:00 09/01/21 11:11 Normal Saline 0.9% IV 100 mls/hr .Q10H JOSE MIGUEL Administration Ketorolac Tromethamine 15 mg 08/31/21 20:25 09/01/21 15:19 Ketorolac 15 Mg/Ml Vial IVP 09/05/21 20:24 15 mg Q6HR PRN Administration PAIN Ondansetron HCl 4 mg 08/31/21 16:17 09/01/21 11:17 Ondansetron 4 Mg/2 Ml Vial IVP 4 mg Q6HR PRN Administration Nausea / Vomiting Oxycodone HCl 5 mg 08/31/21 20:26 09/01/21 10:17 Oxycodone 5 Mg Tablet PO 5 mg Q4HR PRN Administration PAIN Pantoprazole Sodium 40 mg 09/01/21 07:00 09/01/21 09:12 Pantoprazole 40 Mg Tablet PO 40 mg QDAC JOSE MIGUEL Administration Prochlorperazine Edisylate 10 mg 08/31/21 16:17 09/01/21 14:50 Prochlorperazine 10 Mg/2 Ml Vial IVP 10 mg Q6HR PRN Administration Nausea / Vomiting Sodium Chloride 10 ml 08/31/21 16:17 08/31/21 22:18 Sodium Chloride Flush 0.9% 10 Ml Syringe IVP 10 ml PRN PRN Administration NEEDED PER PROVIDER ORDERS Sodium Chloride 10 ml 08/31/21 17:00 09/01/21 16:55 Sodium Chloride Flush 0.9% 10 Ml Syringe IVP Not Given 0100,0900,1700 [facility] - Physical Exam Wound/Incisions: positive: Dressing dry and intact General Appearance: positive: Alert Respiratory: positive: No respiratory distress Skin: positive: Color nml, No rash, Warm, Dry Neurologic/Psychiatric: positive: Oriented x3, Motor nml, Sensation nml (Dressing is dry and intact. Right lower limb motor and sensation is intact skin is normal color and warmth there is no erythema there is no streaking.) ABX Reporting Has patient been on IV antibiotics over the past 48 hours?: Yes Impression/Plan - Problem List Problem List: Patient is a 75-year-old female who is status post right hip hemiarthroplasty performed by Dr Homer Banuelos at [facility] on 08/31/2021. Patient is weightbearing as tolerated in a front wheeled walker. While patient is admitted to the hospital she can continue to get PT/OT. Patient shows no signs or symptoms of infection her pain is well controlled. Patient is advised to take 81 mg aspirin twice daily for 6 weeks postop for DVT prophylaxis. Patient is cleared for discharge from an orthopedic surgery standpoint. Patient is being comanaged by the hospitalist. Patient can follow-up in [facility] within 7 days of hospital discharge.
[2021-09-01] MEDS: MONTELUKAST 10 MG TABLET PO SCH (21:33)
[2021-09-01] MEDS: CALCIUM CARBONATE CHEW 500 MG TABLET PO SCH (21:33)
[2021-09-02] MEDS: ACETAMINOPHEN 325 MG TABLET PO PRN ×4 (00:22→19:21)
[2021-09-02] MEDS: oxyCODONE 5 MG TABLET PO PRN ×5 (00:22→19:20)
[2021-09-02] MEDS: SODIUM CHLORIDE FLUSH 0.9% 10 ML SYRINGE IVP SCH ×4 (03:06→23:36)
[2021-09-02] MEDS: KETOROLAC 15 MG/ML VIAL IVP PRN ×3 (03:29→21:28)
[2021-09-02] MEDS: SODIUM CHLORIDE 0.9% 1,000 ML IV SCH ×2 (05:55→18:56)
[2021-09-02] MEDS: PANTOPRAZOLE 40 MG TABLET PO SCH (05:56)
[2021-09-02 06:25] LABS: BASOPHILS % (AUTO) 0.2 %; EOSINOPHILS # (AUTO) 0.3 10^3/uL (0.0-0.7); EOSINOPHILS % (AUTO) 3.1 %; HCT - HEMATOCRIT 21.9 % (37.0-47.0); LYMPHOCYTES # (AUTO) 1.2 10^3/uL (1.5-3.5); LYMPHOCYTES % (AUTO) 12.8 %; MEAN CORPUSCULAR HEMOGLOBIN 25.2 pg (27.0-31.0); MEAN CORPUSCULAR VOLUME 78.8 fL (81.0-99.0); MONOCYTES # (AUTO) 0.6 10^3/uL (0.0-1.0); MONOCYTES % (AUTO) 6.4 %; NEUTROPHILS # (AUTO) 7.1 10^3/uL (1.5-6.6); NEUTROPHILS % (AUTO) 77.1 %; PLT - PLATELET COUNT 196 10^3/uL (130-450); RED BLOOD COUNT 2.78 10^6/uL (4.20-5.40); RED CELL DISTRIBUTION WIDTH 16.7 % (12.0-15.0); WHITE BLOOD COUNT 9.2 x10^3/uL (4.8-10.8)
[2021-09-02 06:31] LABS: CALCIUM 7.8 mg/dL (8.5-10.3); CREATININE 0.6 mg/dL (0.4-1.0); POTASSIUM 3.4 mmol/L (3.5-5.0)
--- NOTE | 2021-09-02 08:21 | PROVIDER PROGRESS NOTE ---
Subjective - Prog Note Date Prog Note Date: 09/02/21 Prog Note Time: 14:50 - Subjective Subjective: Her anxiety and dizziness are very linked. If she cannot have a benzodiazepine, the dizziness gets out of control, and then she feels like she cannot stand and walk. The pain in her right leg is getting better and better. She is actually able to weight-bear now. The ultrasound of her leg done yesterday shows some fluid collections but they are all anticipated postoperative changes when the orthopedic surgeon reviewed the films. He is not concerned. She does not have a fever, white cell count. She denies chest pain. She is nauseated but has decided she really wants to have some food today. Up to now she is been doing clear liquids because of the severe nausea. Current Medications - Current Medications Current Medications: Active Medications Acetaminophen (Acetaminophen 325 Mg Tablet) 650 mg PO Q4HR PRN PRN Reason: Pain or Fever > 38C (100.4F) Last Admin: 09/02/21 08:26 Dose: 650 mg Albuterol (Albuterol Neb 2.5 Mg/3 Ml) 2.5 mg INH RTQ4H PRN PRN Reason: Wheezing Alprazolam (Alprazolam 0.25 Mg Tablet) 1 mg PO DAILY PRN PRN Reason: Anxiety Last Admin: 09/02/21 08:39 Dose: 1 mg Calcium Carbonate/Glycine (Calcium Carbonate Chew 500 Mg Tablet) 500 mg PO BID COUNTS INCLUDE 234 BEDS AT THE [facility] Last Admin: 09/02/21 10:35 Dose: 500 mg Cholecalciferol (Cholecalciferol 25 Mcg Tablet) 50 mcg PO DAILY COUNTS INCLUDE 234 BEDS AT THE [facility] Last Admin: 09/02/21 10:34 Dose: 50 mcg Enoxaparin Sodium (Enoxaparin 40 Mg/0.4 Ml Syringe) 40 mg SUBQ DAILY COUNTS INCLUDE 234 BEDS AT THE [facility] Last Admin: 09/02/21 10:35 Dose: 40 mg Ferrous Sulfate (Ferrous Sulfate 325 Mg Tablet) 325 mg PO DAILYWM COUNTS INCLUDE 234 BEDS AT THE [facility] Last Admin: 09/02/21 10:33 Dose: 325 mg Hydromorphone HCl (Hydromorphone 1 Mg/Ml Carpuject) 1 mg IVP Q2HR PRN PRN Reason: PAIN Last Admin: 09/01/21 11:17 Dose: 1 mg Sodium Chloride (Normal Saline 0.9%) 1,000 mls @ 100 mls/hr IV .Q10H COUNTS INCLUDE 234 BEDS AT THE [facility] Last Admin: 09/02/21 05:55 Dose: 100 mls/hr Ketorolac Tromethamine (Ketorolac 15 Mg/Ml Vial) 15 mg IVP Q6HR PRN PRN Reason: PAIN Stop: 09/05/21 20:24 Last Admin: 09/02/21 03:29 Dose: 15 mg Montelukast Sodium (Montelukast 10 Mg Tablet) 10 mg PO QPM COUNTS INCLUDE 234 BEDS AT THE [facility] Last Admin: 09/01/21 21:33 Dose: 10 mg Ondansetron HCl (Ondansetron Odt 4 Mg Tablet) 4 mg TL Q6HR PRN PRN Reason: Nausea / Vomiting Ondansetron HCl (Ondansetron 4 Mg/2 Ml Vial) 4 mg IVP Q6HR PRN PRN Reason: Nausea / Vomiting Last Admin: 09/02/21 08:25 Dose: 4 mg Oxycodone HCl (Oxycodone 5 Mg Tablet) 5 mg PO Q4HR PRN PRN Reason: PAIN Last Admin: 09/02/21 12:47 Dose: 5 mg Pantoprazole Sodium (Pantoprazole 40 Mg Tablet) 40 mg PO QDAC COUNTS INCLUDE 234 BEDS AT THE [facility] Last Admin: 09/02/21 05:56 Dose: 40 mg Polyethylene Glycol (Polyethylene Glycol 3350 17 Gm Packet) 17 gm PO DAILY COUNTS INCLUDE 234 BEDS AT THE [facility] Last Admin: 09/02/21 10:34 Dose: 17 gm Potassium Chloride (Potassium Chloride 20 Meq/15 Ml Udc) 20 meq PO DAILYWM COUNTS INCLUDE 234 BEDS AT THE [facility] Last Admin: 09/02/21 10:33 Dose: 20 meq Prochlorperazine Edisylate (Prochlorperazine 10 Mg/2 Ml Vial) 10 mg IVP Q6HR PRN PRN Reason: Nausea / Vomiting Last Admin: 09/01/21 14:50 Dose: 10 mg Sodium Chloride (Sodium Chloride Flush 0.9% 10 Ml Syringe) 10 ml IVP PRN PRN PRN Reason: NEEDED PER PROVIDER ORDERS Last Admin: 08/31/21 22:18 Dose: 10 ml Sodium Chloride (Sodium Chloride Flush 0.9% 10 Ml Syringe) 10 ml IVP 0100,0900,1700 COUNTS INCLUDE 234 BEDS AT THE [facility] Last Admin: 09/02/21 10:38 Dose: Not Given Alprazolam [Xanax] 1 mg PO DAILY PRN 08/31/21 Ferrous Sulfate 220 mg PO DAILY 08/31/21 Montelukast [Singulair] 10 mg PO QPM 08/31/21 Naproxen 500 mg PO DAILY PRN 08/31/21 Omeprazole Magnesium 20 mg PO DAILY 08/31/21 Objective - Vital Signs/Intake & Output Reviewed Vital Signs: Yes Vital Signs: Vital Signs x48h Temp Pulse Resp BP Pulse Ox 09/02/21 08:18 37 C 95 16 103/50 L 95 09/02/21 04:23 36.7 C 83 17 99/56 L 97 09/02/21 00:25 37 C 87 17 106/58 L 97 Intake & Output: Intake & Output 08/30/21 08/31/21 09/01/21 09/02/21 23:59 23:59 23:59 23:59 Intake Total 51 3598.333 1078.333 Output Total 150 550 525 Balance -99 3048.333 553.333 - Objective General Appearance: positive: Alert, Mild distress ("Oh DrSai, I am so dizzy" as she holds the back of her hand over her forehead), Other (Short statured Citizen Of [place] female who looks stated age, with anxiety) Eyes Bilateral: positive: PERRL, EOMI ENT: positive: Pharynx nml, No signs of dehydration Neck: positive: No JVD. negative: Stiff neck Respiratory: positive: No respiratory distress. negative: Wheezes, Rales, Rhonchi Cardiovascular: positive: Regular rate & rhythm. negative: Gallop/S4, Friction rub Abdomen: positive: Non-tender, No organomegaly, Nml bowel sounds, No distention Skin: positive: Warm, Dry, Pallor Extremities: positive: No pedal edema. negative: Full ROM (Right leg with limited range of motion due to right hip surgery and right knee joint effusion.) Neurologic/Psychiatric: positive: Oriented x3, CN's nml (2-12), Motor nml. negative: Mood/affect nml (Anxious and tearful) - Lab Results Fish Bones: 09/02/21 06:13 09/02/21 06:13 Other Labs: Lab Results x24hrs 09/02/21 09/02/21 09/01/21 Range/Units 06:13 06:13 11:47 WBC 9.2 (4.8-10.8) x10^3/uL RBC 2.78 L (4.20-5.40) 10^6/uL Hgb 7.0 L* (12.0-16.0) g/dL Hct 21.9 L (37.0-47.0) % MCV 78.8 L (81.0-99.0) fL MCH 25.2 L (27.0-31.0) pg MCHC 32.0 (32.0-36.0) g/dL RDW 16.7 H (12.0-15.0) % Plt Count 196 (130-450) 10^3/uL MPV 10.0 (7.9-10.8) fL Neut # (Auto) 7.1 H (1.5-6.6) 10^3/uL Lymph # (Auto) 1.2 L (1.5-3.5) 10^3/uL Florence # (Auto) 0.6 (0.0-1.0) 10^3/uL Eos # (Auto) 0.3 (0.0-0.7) 10^3/uL Baso # (Auto) 0.0 (0.0-0.1) 10^3/uL Absolute Nucleated RBC 0.00 x10^3/uL Nucleated RBC % 0.0 /100WBC Sodium 135 137 (135-145) mmol/L Potassium 3.4 L 3.8 (3.5-5.0) mmol/L Chloride 103 105 (101-111) mmol/L Carbon Dioxide 25 25 (21-32) mmol/L Anion Gap 7.0 7.0 (6-13) BUN 13 18 (6-20) mg/dL Creatinine 0.6 0.7 (0.4-1.0) mg/dL Estimated GFR (MDRD) 98 82 L (>89) Glucose 126 H 120 H (70-100) mg/dL Calcium 7.8 L 8.1 L (8.5-10.3) mg/dL 09/01/21 Range/Units 11:47 WBC 9.2 (4.8-10.8) x10^3/uL RBC 3.16 L (4.20-5.40) 10^6/uL Hgb 8.1 L (12.0-16.0) g/dL Hct 24.8 L (37.0-47.0) % MCV 78.5 L (81.0-99.0) fL MCH 25.6 L (27.0-31.0) pg MCHC 32.7 (32.0-36.0) g/dL RDW 16.7 H (12.0-15.0) % Plt Count 240 (130-450) 10^3/uL MPV 10.1 (7.9-10.8) fL Neut # (Auto) 6.5 (1.5-6.6) 10^3/uL Lymph # (Auto) 1.8 (1.5-3.5) 10^3/uL Florence # (Auto) 0.6 (0.0-1.0) 10^3/uL Eos # (Auto) 0.3 (0.0-0.7) 10^3/uL Baso # (Auto) 0.0 (0.0-0.1) 10^3/uL Absolute Nucleated RBC 0.00 x10^3/uL Nucleated RBC % 0.0 /100WBC Sodium (135-145) mmol/L Potassium (3.5-5.0) mmol/L Chloride (101-111) mmol/L Carbon Dioxide (21-32) mmol/L Anion Gap (6-13) BUN (6-20) mg/dL Creatinine (0.4-1.0) mg/dL Estimated GFR (MDRD) (>89) Glucose (70-100) mg/dL Calcium (8.5-10.3) mg/dL Assessment/Plan - Problem List (1) Acute blood loss anemia Impression: Anemic on admission. She states she has been anemic ever since she had a knee replacement and she has been on iron for. There are no old CBCs to find for her. With surgery her hemoglobin started at 10.5 and instructed to 7 g today. Plan: Transfuse 1 unit of packed cells (2) Closed right hip fracture Simple mechanical fall on ice . She is POD #2. On postop day 1 had severe pain and ultrasound done. Normal postoperative findings. Plan: Daughter is in the room with her. Daughter is mechanical maintenance supervisor of physical therapy department in her hospital. Plan is for her to go home tomorrow. She has all the durable medical equipment they need. From home she will drive her to physical therapy and is already worked out arrangements with the therapist at the hospital to get the patient from the car into the therapy department. Both patient and daughter do not want her to go to fpc facility for rehab. DVT prophylaxis ongoing. Pain management ongoing. Qualifiers: Encounter type: initial encounter Qualified Code(s): S72.001A - Fracture of unspecified part of neck of right femur, initial encounter for closed fracture (3) Atopic asthma without complication Conclusion/Plan: In the outpatient setting she takes Singulair. That and albuterol prn started Qualifiers: Asthma severity: mild (4) Hypokalemia supplement po and recheck in am
[2021-09-02] MEDS: ONDANSETRON 4 MG/2 ML VIAL IVP PRN (08:25)
[2021-09-02] MEDS: ALPRAZolam 0.25 MG TABLET PO PRN (08:39)
[2021-09-02] MEDS ORDERED: ASPIRIN EC 81 MG TABLET PO SCH (09:00)
[2021-09-02] MEDS: FERROUS SULFATE 325 MG TABLET PO SCH (10:33)
[2021-09-02] MEDS: POTASSIUM CHLORIDE 20 MEQ/15 ML UDC PO SCH (10:33)
[2021-09-02] MEDS: CHOLECALCIFEROL 25 MCG TABLET PO SCH (10:34)
[2021-09-02] MEDS: polyethylene glycoL 3350 17 GM PACKET PO SCH (10:34)
[2021-09-02] MEDS: CALCIUM CARBONATE CHEW 500 MG TABLET PO SCH ×2 (10:35→21:28)
[2021-09-02] MEDS: ENOXAPARIN 40 MG/0.4 ML SYRINGE SUBQ SCH (10:35)
[2021-09-02] MEDS ORDERED: SODIUM CHLORIDE 0.9% 500 ML IV ONE (11:29)
[2021-09-02] MEDS: MONTELUKAST 10 MG TABLET PO SCH (21:28)
[2021-09-03] MEDS: ALPRAZolam 0.25 MG TABLET PO PRN (00:40)
[2021-09-03] MEDS: ACETAMINOPHEN 325 MG TABLET PO PRN ×2 (00:41→07:50)
[2021-09-03] MEDS: oxyCODONE 5 MG TABLET PO PRN ×2 (00:41→07:51)
[2021-09-03] MEDS: SODIUM CHLORIDE 0.9% 1,000 ML IV SCH ×2 (05:30→15:50)
[2021-09-03] MEDS: PANTOPRAZOLE 40 MG TABLET PO SCH (07:51)
[2021-09-03 08:10] LABS: BASOPHILS % (AUTO) 0.3 %; EOSINOPHILS # (AUTO) 0.3 10^3/uL (0.0-0.7); EOSINOPHILS % (AUTO) 3.3 %; HCT - HEMATOCRIT 25.5 % (37.0-47.0); HGB - HEMOGLOBIN 8.3 g/dL (12.0-16.0); LYMPHOCYTES # (AUTO) 1.2 10^3/uL (1.5-3.5); LYMPHOCYTES % (AUTO) 13.1 %; MEAN CORPUSCULAR HEMOGLOBIN 26.3 pg (27.0-31.0); MEAN CORPUSCULAR HGB CONC 32.5 g/dL (32.0-36.0); MEAN CORPUSCULAR VOLUME 80.7 fL (81.0-99.0); MEAN PLATELET VOLUME 9.9 fL (7.9-10.8); MONOCYTES # (AUTO) 0.8 10^3/uL (0.0-1.0); MONOCYTES % (AUTO) 8.2 %; NEUTROPHILS % (AUTO) 74.7 %; PLT - PLATELET COUNT 211 10^3/uL (130-450); RED BLOOD COUNT 3.16 10^6/uL (4.20-5.40); RED CELL DISTRIBUTION WIDTH 16.5 % (12.0-15.0); WHITE BLOOD COUNT 9.3 x10^3/uL (4.8-10.8)
[2021-09-03 08:12] LABS: CALCIUM 8.1 mg/dL (8.5-10.3); CREATININE 0.6 mg/dL (0.4-1.0); POTASSIUM 3.7 mmol/L (3.5-5.0)
--- NOTE | 2021-09-03 08:29 | Discharge Plan ---
Discharge Plan Problem Reviewed?: Yes Disposition: Home, Self Care Condition: Stable Prescriptions: oxyCODONE [Roxicodone] 5 mg PO Q4HR PRN #30 tablet PRN Reason: Pain Diet: Regular Activity Restrictions: Wt Bearing as Tolerated Shower Restrictions: No Driving Restrictions: Yes (no driving until cleared by Ortho) Assistance Devices: Walker [facility] Concerns: You fell walking on ice and you broke your right thigh bone. You already have anemia because of previous knee surgery so your hemoglobin (which measures how much blood you have) was tend to begin with. Normal amount of hemoglobin is 12- 14 in a woman. After surgery to fix the thigh bone, your hemoglobin dropped to 7 g and you needed 1 unit of blood. You and your daughter feel that you will do better at home in order to recover. And she is taking you home and will take you to physical therapy Plan of Treatment: 1. Follow through with physical therapy as ordered by orthopedic surgery 2. Keep your wound clean and dry. If it gets wet, you can take off the dressing and put on a clean dressing. 3. We have given you oxycodone for pain. It is a very constipating drug so make sure you take a stool softener or eat prunes or fruit every day to make sure you do not get constipated. 4. Sometimes people get blood clots in your legs after orthopedic surgery. It has to do with being less active. So we are giving you a blood thinner injection to take once a day for the next 14 days. 5. Please see the orthopedic surgeon in the next 2 weeks for follow-up. They will look at your wound, and check a x-ray to make sure the bone is healing. 6. Because you have fallen and broken your bone, you must consider yourself as having osteoporosis. Please take calcium 500 mg 3 times a day and vitamin D 2000 international units once a day. Care Goals: At this point your goal should be to make sure that you increase your strength and endurance to get back to baseline. Make sure that you treat possible osteoporosis. Take a daily walk every day. Assessment: Patient promises to follow through with care goals. She states that her daughter runs the physical therapy department at the hospital and daughter will be very helpful in making sure she gets therapy and to increase her strength and get back to normal Follow-Up Care: Outpatient Rehab - PT, Outpatient Rehab - OT No Smoking: If you smoke, Please STOP! Call for help. Follow-up with: Homer Banuelos MD [Provider Admit Priv/Credential] -
--- NOTE | 2021-09-03 08:39 | DISCHARGE SUMMARY ---
Discharge Summary Admit Date: 08/31/21 Discharge Date: 09/03/21 Discharging Provider: Atiya Hannah MD [place] Care Provider[place] PCP Code Status: Attempt Resuscitation Condition at Discharge: Stable Discharge Disposition: 01 Home, Self Care - DIAGNOSES Discharge Diagnoses with Status of Each Condition: 1. Fracture of the right femoral neck 2. Fall on level ground 3. Acute posthemorrhagic anemia 4. Asthma without exacerbation 5. Osteoporosis - HPI History of Present Illness: She is a 75-year-old Yi female who divides her time between [facility] and [facility]. Her past medical history consist of a little bit of blood pressure but not much else. She use to take a "little pill" for it but hasn't in years since she has been fine. She has had elective knee replacement with general anesthesia in the past. She is here visiting her daughter and she fell today on some ice and landed on her hip. She has had instant pain since that time. She cries out intermittently during the exam. She denies any history of valvular heart disease, atrial fibrillation, chronic kidney disease. She did have pneumonia about 2 years ago and it was identified as a fungus. As a result she has some asthma. She walks about a mile and a half a day but still feels like she could walk further if it was not for that darn pneumonia. She denies daily cough. No phlegm production. She has never had a heart attack nor has she had a stroke. Up until she had her fall today, there has been no change in cardiovascular status. She is completely independent with activities of daily living. In the emergency room temperature was 36.3. Heart rate 89. Blood pressure 140/68. Respirations 18. 98% on room air. She is an exceedingly pleasant Yi female who looks her stated age. Short statured, moderately overweight. Other than the foreshortened leg and severe pain with rotation of the hip, she has a negative physical exam. Her CMP is normal except for mildly elevated random glucose of 126. CBC is starting out at a hemoglobin of 10.5 and she does not know she has anemia or not. She does not think she does. Chest x-ray is limited, but there is no acute cardiopulmonary abnormality. Hip and pelvis x- ray has a mildly displaced, subcapital right femoral neck fracture with possible extension fracture into the greater trochanter. Orthopedic surgery has assess to see the patient and place her on her service and they will consult. - Past Medical History Cardiovascular: reports: Hypertension Respiratory: reports: Asthma, Pneumonia (Fungal, 2 years ago) Neuro: reports: Migraines Endocrine/Autoimmune: reports: None GI: reports: GERD HOUSING QUALITY STANDARD INSPECTOR: reports: Other (G4, P4) : reports: None HEENT: reports: Chronic vision loss (Presbyopia) Psych: reports: Anxiety Musculoskeletal: reports: Osteoarthritis (Of the knees) Derm: reports: None MRSA Hx?: No - Past Surgical History General: reports: Cholecystectomy Ortho: reports: Knee replacement /HOUSING QUALITY STANDARD INSPECTOR: reports: Other (bladder surgery) - CONSULTS | PROCEDURES Procedures: 1. Cemented right hip hemiarthroplasty using a [employer] cemented Synergy #11 femoral component, standard offset, 45 mm unipolar positive forehead. 2. Transfusion of 1 unit of packed cells 3. Chest x-ray with limited evaluation but no acute cardiopulmonary findings. 4. AP pelvis with lateral views of right hip showing mildly displaced, subcapital right femoral neck fracture with possible extension fracture into the greater trochanter 5. Postoperative hip film showing postoperative changes without complication. There is been a replacement with a bipolar hip. No fractures or dislocations. Pelvic ring intact. - HOSPITAL COURSE Hospital Course: She underwent an uncomplicated surgery. Postoperatively hemoglobin dropped to 7 g. On admission the patient was already 10.5 g of hemoglobin. She says that she has been trying to deal with anemia from previous knee surgery. She was transfused 1 unit and on the day of discharge hemoglobin was 8.3. She had significant right thigh pain postoperatively with tenseness and redness of the skin and an ultrasound was done to make sure there was no loculation. She did have small, expected, fluid collections on ultrasound. She progressed well with physical therapy. Daughter is the supervisor [employer] for the physical therapy department at the hospital. They both discussed the situation and felt that mom would do better at home. Daughter would drive her to do physical therapy at the hospital rather than go to snf facility for rehab. She is discharged in stable condition. Temperature is 36.7. Heart rate 87. Blood pressure 123/51. She is 5 feet 1 inches tall and weighs 77.5 kg. She is an alert oriented anxious female. Prefers to speak Yi. Neck is supple. Lungs are clear to auscultation and percussion. She has a regular rate and rhythm. Mildly/moderately overweight abdominal pannus. Normal bowel sounds. No rebound or guarding. Right leg has mild edema. Left leg none. The wound is closed, no redness, no drainage. Right medial thigh is slightly edematous and uncomfortable with palpation. She is able to stand to weight-bear and is cooperating with physical therapy. Greater than 30 minutes was spent coordinating discharge. She will be sent home with oxycodone as needed. Instructed to make sure to avoid constipation with this. She will also be sent home with Lovenox 40 mg subcu daily. - ALLERGIES Allergies/Adverse Reactions: Allergies Allergy/AdvReac Type Severity Reaction Status Date / Time iodine Allergy Respiratory Verified 08/31/21 13:47 Penicillins Allergy Respiratory Verified 08/31/21 13:47 - MEDICATIONS Home Medications: Ambulatory Orders Medication Instructions Recorded Confirmed Alprazolam [Xanax] 1 mg PO DAILY PRN 08/31/21 08/31/21 Ferrous Sulfate 220 mg PO DAILY 08/31/21 08/31/21 Montelukast [Singulair] 10 mg PO QPM 08/31/21 08/31/21 Naproxen 500 mg PO DAILY PRN 08/31/21 08/31/21 Omeprazole Magnesium 20 mg PO DAILY 08/31/21 08/31/21 Acetaminophen [Tylenol] 650 mg PO Q4HR PRN tablet 09/03/21 Calcium Carbonate [Tums (Calcium 500 mg PO BID tablet 09/03/21 Carbonate 500mg)] Cholecalciferol [Vitamin D3] 50 mcg PO DAILY tablet 09/03/21 Enoxaparin [Lovenox] 40 mg SUBQ Q24H #14 09/03/21 oxyCODONE [Roxicodone] 5 mg PO Q4HR PRN #30 tablet 09/03/21 - LABS Result Diagrams: 09/03/21 08:00 09/03/21 08:00
[2021-09-03] MEDS ORDERED: SENNA 8.6 MG TABLET PO SCH (09:00)
[2021-09-03] MEDS ORDERED: DOCUSATE SODIUM 250 MG CAPSULE PO SCH (09:00)
[2021-09-03] MEDS: FERROUS SULFATE 325 MG TABLET PO SCH (09:27)
[2021-09-03] MEDS: POTASSIUM CHLORIDE 20 MEQ/15 ML UDC PO SCH (09:28)
[2021-09-03] MEDS: CHOLECALCIFEROL 25 MCG TABLET PO SCH (09:29)
[2021-09-03] MEDS: CALCIUM CARBONATE CHEW 500 MG TABLET PO SCH (09:29)
[2021-09-03] MEDS: polyethylene glycoL 3350 17 GM PACKET PO SCH ×2 (09:32→11:43)
[2021-09-03] MEDS: ENOXAPARIN 40 MG/0.4 ML SYRINGE SUBQ SCH (09:32)
[2021-09-03] MEDS: SODIUM CHLORIDE FLUSH 0.9% 10 ML SYRINGE IVP SCH (09:35)
[2021-09-03] MEDS: KETOROLAC 15 MG/ML VIAL IVP PRN (11:27)
[2021-09-03] MEDS: SODIUM CHLORIDE FLUSH 0.9% 10 ML SYRINGE IVP PRN (11:28)
[2021-09-03] MEDS ORDERED: ZINC OXIDE 20% OINT 30 GM TUBE TOP PRN (12:03)
[2021-09-03 12:15] VITALS: BP 103/62
== END 2021-09-03 13:00 | disposition home or self-care (01) | DRG 522 ==
LOC: EDUNIT# → ED 13:33 → MS2 17:00
PROVIDERS: ADMIT Specialist; ATTEND Specialist
PROC: 0SRR019 Replacement of Right Hip Joint, Femoral Surface with Metal Synthetic Substitute, Cemented, Open Approach (ICD-10-PCS; principal; 2021-08-31 16:30)
PROC: 30233N1 Transfusion of Nonautologous Red Blood Cells into Peripheral Vein, Percutaneous Approach (ICD-10-PCS; 2021-09-02)
DX: S72.011A Unspecified intracapsular fracture of right femur, initial encounter for closed fracture (principal); W18.30XA Fall on same level, unspecified, initial encounter; Y92.9 Unspecified place or not applicable; Z20.822 Contact with and (suspected) exposure to COVID-19; D62 Acute posthemorrhagic anemia; W00.0XXA Fall on same level due to ice and snow, initial encounter; Y93.K1 Activity, walking an animal; J45.909 Unspecified asthma, uncomplicated; M81.0 Age-related osteoporosis without current pathological fracture; I10 Essential (primary) hypertension; K21.9 Gastro-esophageal reflux disease without esophagitis; G89.18 Other acute postprocedural pain; E87.6 Hypokalemia; E66.9 Obesity, unspecified; Z68.31 Body mass index [BMI] 31.0-31.9, adult
CPT/HCPCS: 36415; 71045; 73501; 73502; 76882; 80048; 80053; 85025; 86850; 86900; 86901; 86920; 87631; 93005; 96365; 96375; 97110; 97116; 97162; 97165; 97530; 99285; A9270; J1170; J1650; J3370; J7040; J7120; P9016; 0202U

== ENCOUNTER 2021-10-11 13:46 | Outpatient (CLI) | payer OTHER, MEDICARE ==
--- NOTE | 2021-10-11 17:33 | XRAY Report ---
PROCEDURE: Hip 2 View RT INDICATIONS: RIGHT HIP HEMIARTHROPLASTY TECHNIQUE: 3 view(s) of the hip were acquired. COMPARISON: 08/31/2021 FINDINGS: Bones: Status post right hip arthroplasty which appears stable in postsurgical alignment. No evidenc e for acute hardware complication. Remainder of the visualized osseous structures appear intact. No a cute fractures or dislocations. No suspicious bony lesions. The visualized pelvic ring appears inta ct. Soft tissues: No suspicious soft tissue calcifications or masses. IMPRESSION: Stable postsurgical appearance and alignment of right hip arthroplasty without evidence for acute alejandro dware complication. Reviewed by: Jamarcus Shah MD on 10/11/2021 5:31 PM PST Approved by: Jamarcus Shah MD on 10/11/2021 5:31 PM PST Station ID: [id number]
== END 2021-10-11 13:47 | disposition home or self-care (01) ==
LOC: DI.WOS 13:46
PROVIDERS: ATTEND Physician Assistant
DX: Z47.1 Aftercare following joint replacement surgery (principal); Z96.641 Presence of right artificial hip joint